=== PATIENT | male | born 1955 | race African-American/Black ===

== ENCOUNTER → 2017-12-01 16:41 | Outpatient (CLI) | payer OTHER, MEDICAID, SELFPAY ==
--- NOTE | 2017-12-01 16:45 | DI.MRI.S_ITS ---
PROCEDURE: MR LUMBAR SPINE WO CON INDICATIONS: LOW BACK PAIN TECHNIQUE: Noncontrast sagittal T1 spin echo and T2 fast echo, sagittal STIR, axial T1 and T2 fast spin echo through the lumbar spine. In cases with scoliosis, additional coronal T2 fast spin echo may be performed. COMPARISON: [facility], MR, L-SPINE WITHOUT CONTRAST, 12/29/2016, 17:04. FINDINGS: Image quality: Excellent. Alignment and Curvature: There is normal bony alignment. Bone Marrow: Marrow is of normal overall signal. No acute vertebral body compression fractures. Spinal Cord: Conus medullaris terminates at the T12/L1 level. Visualized cord demonstrates normal signal and size. Paraspinous Soft Tissues: No paravertebral masses. L1-L2: Mild disc desiccation. Broad-based disc bulge. No canal stenosis. No neural foraminal stenosis. These findings are unchanged when compared with the study dated 12/29/16. L2-L3: Mild disc desiccation and height loss. Broad-based disc bulge. Mild facet ligamentum flavum hypertrophy. No canal stenosis. No neural foraminal stenosis. These findings are unchanged. L3-L4: Mild disc desiccation and height loss. Broad-based disc bulge. Moderate facet ligamentum flavum hypertrophy. Mild canal stenosis. Mild epidural lipomatosis. Moderate bilateral neural foraminal stenosis. These findings are similar to the prior study. L4-L5: Mild disc desiccation and height loss. Broad-based disc bulge. Moderate facet and ligamentum flavum hypertrophy. Epidural and pneumatosis with moderate canal stenosis. Severe bilateral neural foraminal narrowing. These findings are unchanged. L5-S1: Mild disc desiccation and height loss. Broad-based disc bulge. Severe facet sclerosis. Epidural lipomatosis. Mild canal stenosis. Severe bilateral neural foraminal stenosis. These findings are unchanged. IMPRESSION: 1. Disc desiccation and height loss throughout the lumbar spine overall mild in degree. 2. Broad-based disc bulges, facet and ligamentum flavum hypertrophy, and epidural lipomatosis with resultant mild canal stenosis at L3-4 and L5-S1 and moderate canal stenosis at L4-5. These findings are similar in extent to the study dated 12/29/16. 3. Severe bilateral neuroforaminal stenosis at L4-5 and L5-S1, unchanged from the prior study. 4. The previously described annular fissure at L5-S1 is not definitely visualized on the current study. Dictated by: Jasmina Pantoja M.D. on 12/01/2017 at 16:35 Approved by: Jasmina Pantoja M.D. on 12/01/2017 at 16:41
== END ==
PROVIDERS: Family Provider Family Medicine; PCP Family Medicine; Visit Provider Physical Medicine & Rehabilitation Pain Medicine
DX: M54.5 Low back pain (principal); M48.061 Spinal stenosis, lumbar region without neurogenic claudication; M51.26 Other intervertebral disc displacement, lumbar region
CPT/HCPCS: 72148

== ENCOUNTER 2018-04-17 12:37 | Emergency (ER) | payer OTHER, MEDICAID, SELFPAY ==
[2018-04-17 12:41] VITALS: BP 151/91; PULSE 67; RESP 17; TEMP 36.8; O2SAT 98; BMI 35.5
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
[2018-04-17 13:06] LABS: Add Manual Diff / Slide Review NO; Basophils Percent Auto 0.6 % (0-2); Eosinophils Percent Auto 6.8 % (2-4); Hematocrit 37.1 % (41-53); Hemoglobin 12.8 g/dL (13.5-17.5); Lymphocytes Percent Auto 40.7 % (25-40); Mean Corpuscular HGB Conc 34.6 % (30-36); Mean Corpuscular Hemoglobin 30.5 PG (26-34); Mean Corpuscular Volume 88.2 fL (80-100); Monocytes Percent Auto 13.8 % (3-14); Neutrophils Absolute Auto 2400 /uL (3000-5900); Neutrophils Percent Auto 38.1 % (50-75); Platelet Count 157 X10^3/uL (150-400); Red Blood Cell Count 4.21 X10^6/uL (4.5-5.9); Red Cell Distribution Width 15.2 % (11.6-14.8); White Blood Cell Count 6.2 X10^3/uL (4.5-11.0)
[2018-04-17 13:14] LABS: Alanine Aminotransferase 23 IU/L (21-72); Albumin 4.2 g/dL (3.5-5.0); Albumin Globulin Ratio 1.3 (1.0-2.8); Alkaline Phosphatase 68 U/L (38-126); Aspartate Aminotransferase 34 IU/L (17-59); BUN Creatinine Ratio 21.3 (6-22); Bilirubin Total 0.6 mg/dL (0.2-1.3); Blood Urea Nitrogen 32 mg/dL (9-20); Calcium 8.4 mg/dL (8.4-10.2); Carbon Dioxide 26 mmol/L (22-32); Chloride 107 mmol/L (98-107); Creatine Kinase 999 U/L (55-170); Estimated Glomerular Filt Rate 47.3 mL/min (>60); Globulin 3.3 g/dL (1.7-4.1); Glucose 90 mg/dL (80-110); HEMOLYSIS < 15 (0-50); Potassium 5.3 mmol/L (3.4-5.1); Sodium 144 mmol/L (137-145); Total Protein 7.5 g/dL (6.3-8.2)
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
[2018-04-17 13:26] LABS: Troponin I < 0.012 ng/mL (0.01-0.034)
[2018-04-17 13:28] LABS: Lactate (Lactic Acid) 1.3 mmol/L (0.7-2.1)
[2018-04-17 13:29] LABS: CKMB % Relative Index 0.3 % (1.5-5.0); Creatine Kinase MB 3.22 ng/mL (<2.37)
[2018-04-17 13:32] LABS: Procalcitonin < 0.05 ng/mL (<0.5)
[2018-04-17 13:33] VITALS: BP 113/76; PULSE 60; RESP 17; O2SAT 98
[2018-04-17] MEDS: SODIUM CHLORIDE 0.9% 1,000 ML 1000 ML IV (13:33)
[2018-04-17 13:54] LABS: Influenza A and B by PCR Rapid Negative (Negative)
[2018-04-17 14:00] VITALS: BP 129/81; PULSE 65; RESP 20; O2SAT 96
[2018-04-17 14:32] VITALS: BP 133/76; PULSE 58; RESP 22; O2SAT 97
== END 2018-04-17 14:40 | disposition home or self-care (01) ==
PROVIDERS: Emergency Provider Nurse Practitioner Family; Family Provider Family Medicine; PCP Family Medicine
DX: J40 Bronchitis, not specified as acute or chronic (principal)
CPT/HCPCS: 36415; 36591; 71045; 80053; 82550; 82553; 83605; 84145; 84484; 85025; 87400; 93005; 96360; 96361; 99283; 99285

== ENCOUNTER 2018-10-25 01:11 | Emergency (ER) | payer OTHER, MEDICAID, SELFPAY ==
[2018-10-25 01:15] VITALS: BP 132/83; PULSE 88; RESP 20; TEMP 36.6; O2SAT 99; BMI 33.7
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
--- NOTE | 2018-10-25 01:20 | PC.NURSE ---
14 fr coude placed attached to a leg bag. Pt tolerated procedure well, stated that feels way better after urine started to flow in the tubing. Sample obtained for poc. Pt comfortable on stretcher now talkng to spouse on phone. Denies needs at this time.
[2018-10-25 01:37] LABS: Bacteria Urine None Seen; WBC Urine None Seen (0-5/HPF)
[2018-10-25 01:39] LABS: Culture Indicated Urine Cult Not Indicated; RBC Urine 10-30/HPF (0-5/HPF)
[2018-10-25 02:14] VITALS: BP 107/75; PULSE 70; RESP 99; O2SAT 99
== END 2018-10-25 02:17 | disposition home or self-care (01) ==
PROVIDERS: Emergency Provider Emergency Medicine; PCP Family Medicine
DX: R33.8 Other retention of urine (principal)
CPT/HCPCS: 81003; 81015; 99283

== ENCOUNTER 2018-11-04 19:26 | Emergency (ER) | payer OTHER, MEDICAID, SELFPAY ==
[2018-11-04 19:30] VITALS: BP 150/84; PULSE 90; RESP 22; TEMP 37.2; O2SAT 98; BMI 35.5
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
[2018-11-04 19:58] LABS: Add Manual Diff / Slide Review NO; Basophils Absolute Auto 100 /uL (0-100); Basophils Percent Auto 0.6 % (0-2); Eosinophils Absolute Auto 300 /uL (0-450); Eosinophils Percent Auto 2.6 % (2-4); Hematocrit 40.2 % (41-53); Hemoglobin 14.2 g/dL (13.5-17.5); Lymphocytes Absolute Auto 1500 /uL (1100-4500); Lymphocytes Percent Auto 11.4 % (25-40); Mean Corpuscular HGB Conc 35.2 % (30-36); Mean Corpuscular Volume 85.4 fL (80-100); Monocytes Absolute Auto 900 /uL (0-900); Monocytes Percent Auto 7.1 % (3-14); Neutrophils Absolute Auto 10200 /uL (1500-7000); Neutrophils Percent Auto 78.3 % (50-75); Platelet Count 227 X10^3/uL (150-400); Red Blood Cell Count 4.71 X10^6/uL (4.5-5.9); Red Cell Distribution Width 14.9 % (11.6-14.8)
[2018-11-04 20:05] LABS: Prothrombin Time 11.9 SECONDS (10.1-12.7)
[2018-11-04 20:08] LABS: PTT Partial Thromboplastin Tim 24 SECONDS (26.4-36.2)
[2018-11-04 20:11] LABS: Alanine Aminotransferase 11 IU/L (21-72); Albumin 4.7 g/dL (3.5-5.0); Albumin Globulin Ratio 1.2 (1.0-2.8); Alkaline Phosphatase 86 U/L (38-126); Aspartate Aminotransferase 28 IU/L (17-59); BUN Creatinine Ratio 18.4 (6-22); Bilirubin Total 0.8 mg/dL (0.2-1.3); Blood Urea Nitrogen 35 mg/dL (9-20); Calcium 9.2 mg/dL (8.4-10.2); Carbon Dioxide 20 mmol/L (22-32); Chloride 106 mmol/L (98-107); Creatine Kinase 296 U/L (55-170); Estimated Glomerular Filt Rate 35.9 mL/min (>60); Globulin 3.9 g/dL (1.7-4.1); Glucose 104 mg/dL (80-110); Lipase 74 U/L (23-300); Sodium 136 mmol/L (137-145); Total Protein 8.6 g/dL (6.3-8.2)
[2018-11-04 20:22] LABS: Troponin I < 0.012 ng/mL (0.01-0.034)
[2018-11-04 20:24] LABS: Potassium 6.7 mmol/L (3.4-5.1)
[2018-11-04 20:26] LABS: CKMB % Relative Index 0.6 % (1.5-5.0); Creatine Kinase MB 1.69 ng/mL (<2.37); HEMOLYSIS 23 (0-50)
[2018-11-04 20:31] VITALS: BP 133/71; PULSE 82; RESP 21; O2SAT 99
--- NOTE | 2018-11-04 20:32 | PC.NURSE ---
Received call from lab for potassium of 6.7, this RN reports sluggish draw, Dr Daily aware, repeat potassium lab test order obtained.
[2018-11-04] MEDS: HYDROCODONE/ACET 5/325 TABLET 1 TAB PO (20:45)
[2018-11-04 21:12] LABS: HEMOLYSIS < 15 (0-50)
[2018-11-04 21:16] LABS: Lactate (Lactic Acid) 0.7 mmol/L (0.7-2.1)
[2018-11-04 21:18] LABS: Bilirubin Urine UA NEGATIVE (NEGATIVE); Color Urine UA RED; Glucose Urine UA NEGATIVE (Negative); Ketones Urine UA NEGATIVE (NEGATIVE); Leukocyte Esterase Urine UA 3+ (NEGATIVE); Nitrite Urine UA POSITIVE (Negative); Occult Blood Urine UA 3+ (Negative); Protein Urine UA 1+ (Negative); Urobilinogen Urine UA 0.2 E.U./dL (0.2)
[2018-11-04 21:20] LABS: Potassium 7.2 mmol/L (3.4-5.1)
[2018-11-04 21:27] LABS: Appearance Urine UA TURBID
[2018-11-04 21:29] LABS: RBC Urine >100/HPF (0-5/HPF)
[2018-11-04 21:31] LABS: Bacteria Urine Many (>30); WBC Urine 30-100/HPF (0-5/HPF)
[2018-11-04 21:32] LABS: Culture Indicated Urine Specimen Cultured
[2018-11-04 21:35] VITALS: BP 126/71; PULSE 85; RESP 16; O2SAT 100
[2018-11-04 21:51] LABS: Procalcitonin 0.06 ng/mL (<0.5)
[2018-11-04] MEDS: MORPHINE 4 MG/ML INJ 6 MG IV (22:03)
[2018-11-04] MEDS: DEXTROSE 50 % IN WATER 25 GM/50 ML SYRINGE IV (22:09)
[2018-11-04] MEDS: INSULIN REGULAR 100 UNIT/ML 3 ML VIAL 10 UNIT IV (22:12)
[2018-11-04] MEDS: CEFTRIAXONE 1 GM/50 ML FROZ.PIGGY IV (22:27)
[2018-11-04] MEDS: ALBUTEROL 2.5 MG/3 ML NEB (ADULT) 5 MG INH (22:28)
[2018-11-04 22:37] VITALS: BP 122/73; PULSE 84; RESP 17; O2SAT 100
[2018-11-04] MEDS: SODIUM POLYSTYRENE SULFON/SORB 15 GM/60 ML CUP 30 GM PO (23:30)
[2018-11-04] MEDS: SODIUM CHLORIDE 0.9% 1,000 ML 125 ML IV (23:30)
[2018-11-05 00:10] VITALS: BP 134/75; PULSE 91; RESP 23; TEMP 37.3; O2SAT 97
[2018-11-05 00:43] VITALS: TEMP 39.2
[2018-11-05] MEDS: IBUPROFEN 400 MG TABLET PO (00:43)
--- NOTE | 2018-11-05 00:48 | PC.NURSE ---
Addendum entered by Anusha Conway R.N. 11/05/18 00:51: Bedside commode was also offered to pt d/t kayexalate administration. Pt denies any need or urge to use commode at this time. Original Note: Lambert changed from leg bag to dependent drainage bag. Irrigation performed, small amount of clots returned. Pt requested brief be placed on d/t some leaking around lambert. Securement of lambert ensured using securement device on leg. Pt was complaining of being cold, shivering noted, repeat temp revealed temp of 102.5. Verbal order for 400 mg ibuprofen received from Dr. Daily. Pt has been medicated. Will continue to monitor.
[2018-11-05 01:01] VITALS: BP 137/87; PULSE 97; RESP 22; O2SAT 99
== END 2018-11-05 01:22 | disposition short-term general hospital (02) ==
PROVIDERS: Emergency Provider Emergency Medicine; PCP Family Medicine
DX: E87.5 Hyperkalemia (principal); N17.9 Acute kidney failure, unspecified; N39.0 Urinary tract infection, site not specified; R07.89 Other chest pain; R06.02 Shortness of breath
CPT/HCPCS: 36415; 36591; 51700; 71045; 80053; 81001; 82550; 82553; 82962; 83605; 83690; 84132; 84145; 84484; 85025; 85610; 85730; 87040; 87077; 87086; 87186; 93005; 96361; 96365; 96375; 99285; J2270; J7613

== ENCOUNTER → 2018-11-14 10:58 | Outpatient (CLI) | payer OTHER, MEDICAID, SELFPAY ==
[2018-11-14 13:12] LABS: BUN Creatinine Ratio 19.2 (6-22); Blood Urea Nitrogen 23 mg/dL (9-20); Calcium 9.3 mg/dL (8.4-10.2); Carbon Dioxide 28 mmol/L (22-32); Chloride 101 mmol/L (98-107); Estimated Glomerular Filt Rate > 60.0 mL/min (>60); Glucose 106 mg/dL (80-110); HEMOLYSIS 18 (0-50); Potassium 5.2 mmol/L (3.4-5.1); Sodium 139 mmol/L (137-145)
== END ==
PROVIDERS: PCP Family Medicine; Visit Provider Family Medicine
DX: E87.5 Hyperkalemia (principal); N17.9 Acute kidney failure, unspecified
CPT/HCPCS: 36415; 80048

== ENCOUNTER → 2018-12-26 14:07 | Outpatient (CLI) | payer OTHER, MEDICAID, SELFPAY ==
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
== END ==
PROVIDERS: PCP Family Medicine; Visit Provider Physical Medicine & Rehabilitation
DX: M16.0 Bilateral primary osteoarthritis of hip (principal)
CPT/HCPCS: 73521

== ENCOUNTER → 2019-01-06 09:57 | Outpatient (CLI) | payer OTHER, MEDICAID, SELFPAY ==
--- NOTE | 2019-01-06 10:03 | DI.RAD.S_ITS ---
PROCEDURE: XR LUMBAR SPINE 2-3V INDICATIONS: lumbar spondylosis, history prostate cancer TECHNIQUE: 3 views of the lumbar spine were acquired. COMPARISON: [facility], ARABELLA, SPINE LUMB 2 OR 3VW, 10/05/2016, 16:04. [facility], ARABELLA, L-SPINE 4V PLUS BENDING, 12/22/2007, 10:26. FINDINGS: Bones: No fracture or focal osseous destruction. Multilevel degenerative endplate sclerosis and spurring. Diffuse facet arthropathy. Straightening of the normal lordotic curvature. Trace retrolisthesis of L3 on L4 as before. Mild L5-S1 disc space narrowing. Mild diffuse lower thoracic disc space narrowing. Mild levocurvature as before Soft tissues: Overlying bowel gas pattern is normal. No suspicious soft tissue calcifications. IMPRESSION: Mild L5-S1 lumbar spondylosis, no interval change since 10/05/16. Diffuse facet arthropathy Dictated by: Paul Guerrero M.D. on 01/06/2019 at 12:50 Approved by: Paul Guerrero M.D. on 01/06/2019 at 12:52
--- NOTE | 2019-01-06 10:03 | DI.RAD.S_ITS ---
PROCEDURE: XR KNEE LT 3V INDICATIONS: evaluate DJD TECHNIQUE: 3 views of the knee were acquired. COMPARISON: [facility], KNEE 1-2 VIEWS LEFT, 02/03/2008, 13:28. [facility], KNEE 1-2 VIEWS RIGHT, 02/03/2008, 13:28. FINDINGS: Bones: No fractures or dislocations. No suspicious bony lesions. Chondrocalcinosis projecting in the lateral compartment. Scattered degenerative subchondral sclerosis and spurring. Chronic osseous fusion of the proximal tibia and fibula. Mild narrowing of the medial joint space. Soft tissues: No joint effusion. No suspicious soft tissue calcifications. IMPRESSION: Left knee chondrocalcinosis. Mild degenerative joint disease, grossly unchanged since 02/03/08 Dictated by: Paul Guerrero M.D. on 01/06/2019 at 14:10 Approved by: Paul Guerrero M.D. on 01/06/2019 at 14:12
--- NOTE | 2019-01-06 10:03 | DI.RAD.S_ITS ---
PROCEDURE: XR KNEE RT 3V INDICATIONS: evaluate DJD TECHNIQUE: 3 views of the knee were acquired. COMPARISON: [facility], , KNEE 1-2 VIEWS RIGHT, 02/03/2008, 13:28. FINDINGS: Bones: No fractures or dislocations. No suspicious bony lesions. Scattered degenerative subchondral sclerosis and spurring. Moderate medial joint space narrowing, and moderate patellofemoral joint space narrowing Soft tissues: No joint effusion. No suspicious soft tissue calcifications. IMPRESSION: Moderate right knee joint degeneration, slightly progressed since 02/03/08 Dictated by: Paul Guerrero M.D. on 01/06/2019 at 12:52 Approved by: Paul Guerrero M.D. on 01/06/2019 at 12:54
== END ==
PROVIDERS: PCP Family Medicine; Visit Provider Family Medicine
DX: M17.0 Bilateral primary osteoarthritis of knee (principal); M47.27 Other spondylosis with radiculopathy, lumbosacral region; M11.262 Other chondrocalcinosis, left knee; Z85.46 Personal history of malignant neoplasm of prostate
CPT/HCPCS: 72100; 73562

== ENCOUNTER 2019-05-17 09:56 | Emergency (ER) | payer MEDICARE, MEDICAID, SELFPAY ==
[2019-05-17 10:10] VITALS: BP 140/90; PULSE 74; RESP 16; TEMP 36.6; O2SAT 98
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
[2019-05-17 10:52] LABS: Prothrombin Time 11.1 SECONDS (10.1-12.7)
[2019-05-17 10:53] LABS: Basophils Absolute Auto 100 /uL (0-100); Eosinophils Absolute Auto 600 /uL (0-450); Neutrophils Absolute Auto 3500 /uL (1500-7000)
[2019-05-17 10:55] LABS: PTT Partial Thromboplastin Tim 20 SECONDS (26.4-36.2)
[2019-05-17 10:58] LABS: Alanine Aminotransferase 19 IU/L (<50); Albumin 4.5 g/dL (3.5-5.0); Albumin Globulin Ratio 1.4 (1.0-2.8); Alkaline Phosphatase 70 U/L (38-126); Aspartate Aminotransferase 37 IU/L (17-59); BUN Creatinine Ratio 18.5 (6-22); Bilirubin Total 1.1 mg/dL (0.2-1.3); Blood Urea Nitrogen 24 mg/dL (9-20); Calcium 8.8 mg/dL (8.4-10.2); Carbon Dioxide 22 mmol/L (22-32); Chloride 107 mmol/L (98-107); Creatine Kinase 436 U/L (55-170); Estimated Glomerular Filt Rate 55.4 mL/min (>60); Globulin 3.3 g/dL (1.7-4.1); Glucose 126 mg/dL (80-110); Lipase 58 U/L (23-300); Potassium 4.6 mmol/L (3.4-5.1); Sodium 139 mmol/L (137-145); Total Protein 7.8 g/dL (6.3-8.2)
[2019-05-17 11:00] VITALS: BP 145/95; PULSE 64; RESP 19; O2SAT 100
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
[2019-05-17 11:01] LABS: Eosinophils Percent Auto 7.9 % (2-4); HEMOLYSIS 65 (0-50); Hemoglobin 13.8 g/dL (13.5-17.5); Lymphocytes Absolute Auto 3100 /uL (1100-4500); Lymphocytes Percent Auto 39.1 % (25-40); Mean Corpuscular HGB Conc 35.3 % (30-36); Mean Corpuscular Hemoglobin 30.6 PG (26-34); Mean Corpuscular Volume 86.7 fL (80-100); Monocytes Absolute Auto 600 /uL (0-900); Monocytes Percent Auto 7.7 % (3-14); Neutrophils Percent Auto 44.3 % (50-75); Red Cell Distribution Width 15.1 % (11.6-14.8); White Blood Cell Count 7.8 X10^3/uL (4.5-11.0)
[2019-05-17 11:03] LABS: Add Manual Diff / Slide Review SLIDE REVIEW
[2019-05-17 11:09] LABS: Troponin I < 0.012 ng/mL (0.01-0.034)
[2019-05-17 11:13] LABS: CKMB % Relative Index 0.6 % (1.5-5.0); Creatine Kinase MB 2.68 ng/mL (<2.37)
[2019-05-17 11:20] LABS: RBC Morphology Normal Morphology
[2019-05-17 11:21] LABS: Platelet Count 166 X10^3/uL (150-400)
[2019-05-17] MEDS: SODIUM CHLORIDE 0.9% 1,000 ML 1000 ML IV (11:25)
[2019-05-17 11:30] VITALS: BP 142/87; PULSE 62; RESP 15; O2SAT 100
[2019-05-17 12:00] VITALS: BP 130/90; PULSE 57; PULSE 62; RESP 12; RESP 13; O2SAT 100; O2SAT 99
[2019-05-17 12:29] LABS: Bacteria Urine None Seen; RBC Urine None Seen (0-5/HPF)
[2019-05-17 12:38] LABS: WBC Urine 0-1/HPF (0-5/HPF)
[2019-05-17 12:39] LABS: Amorphous Sediment Urine 1+; Culture Indicated Urine Cult Not Indicated; Mucus Urine 2+ (Negative); Squamous Epithelial Cell Urine 1-5 /HPF (0-5/HPF)
[2019-05-17 13:00] VITALS: BP 135/86; PULSE 60; RESP 16; O2SAT 98
[2019-05-17 14:17] VITALS: BP 161/88; PULSE 74; RESP 16; TEMP 36.9; O2SAT 99
== END 2019-05-17 14:19 | disposition left against medical advice (07) ==
PROVIDERS: Emergency Medicine; Emergency Provider Emergency Medicine; PCP Family Medicine
DX: R07.9 Chest pain, unspecified (principal); W85.XXXA Exposure to electric transmission lines, initial encounter; R79.89 Other specified abnormal findings of blood chemistry
CPT/HCPCS: 36415; 71045; 80053; 81003; 81015; 82550; 82553; 83690; 84484; 85025; 85610; 85730; 93005; 93010; 96360; 96361; 99283; 99285

== ENCOUNTER → 2019-07-19 14:51 | Outpatient (CLI) | payer MEDICARE, MEDICAID, SELFPAY ==
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
== END ==
PROVIDERS: PCP Family Medicine; Referring Provider Family Medicine; Visit Provider Family Medicine
DX: M25.551 Pain in right hip (principal); R10.2 Pelvic and perineal pain; M47.816 Spondylosis without myelopathy or radiculopathy, lumbar region; M43.16 Spondylolisthesis, lumbar region
CPT/HCPCS: 72100

== ENCOUNTER → 2019-10-12 13:33 | Outpatient (CLI) | payer MEDICARE, MEDICAID, SELFPAY ==
[2019-10-14 16:07] LABS: COVID19 Sendout Not Detected (Not Detected)
== END ==
PROVIDERS: PCP Family Medicine; Visit Provider Family Medicine
DX: R05 Cough (principal)
CPT/HCPCS: 87635

== ENCOUNTER 2021-01-10 14:01 | Emergency (ER) | payer MEDICARE, MEDICAID, SELFPAY ==
[2021-01-10 14:10] VITALS: BP 137/77; PULSE 70; RESP 14; TEMP 36.6; O2SAT 99; BMI 35.5
[2021-01-10 14:37] LABS: COVID19 -Nasal RAPID Negative (Negative)
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
== END 2021-01-10 15:17 | disposition home or self-care (01) ==
PROVIDERS: Emergency Provider Emergency Medicine; PCP Family Medicine
DX: R06.00 Dyspnea, unspecified (principal); Z20.822 Contact with and (suspected) exposure to COVID-19
CPT/HCPCS: 87635; 99281; 99282; C9803

== ENCOUNTER 2021-03-06 14:55 | Observation (INO) | payer MEDICARE, MEDICAID, SELFPAY ==
[2021-03-06] VITALS (13 sets, daily range): BP systolic 137–162; BP diastolic 79–97; PULSE 64–77; RESP 13–30; TEMP 36.4–37.3; O2SAT 96–100; BMI 35.5
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
[2021-03-06] MEDS: ASPIRIN 81 MG CHEW TAB 324 MG PO (15:52)
[2021-03-06 15:54] LABS: Add Manual Diff / Slide Review NO; Basophils Absolute Auto 0 /uL (0-100); Basophils Percent Auto 0.6 % (0-2); Eosinophils Absolute Auto 500 /uL (0-450); Eosinophils Percent Auto 9.2 % (2-4); Hematocrit 35.1 % (41-53); Hemoglobin 12.2 g/dL (13.5-17.5); Lymphocytes Absolute Auto 2000 /uL (1100-4500); Lymphocytes Percent Auto 33.6 % (25-40); Mean Corpuscular HGB Conc 34.6 % (30-36); Mean Corpuscular Hemoglobin 31.1 PG (26-34); Mean Corpuscular Volume 89.7 fL (80-100); Monocytes Absolute Auto 400 /uL (0-900); Monocytes Percent Auto 6.9 % (3-14); Neutrophils Absolute Auto 2900 /uL (1500-7000); Neutrophils Percent Auto 49.7 % (50-75); Platelet Count 181 X10^3/uL (150-400); Red Blood Cell Count 3.91 X10^6/uL (4.5-5.9); Red Cell Distribution Width 14.7 % (11.6-14.8); White Blood Cell Count 5.8 X10^3/uL (4.5-11.0)
[2021-03-06 16:11] LABS: Alanine Aminotransferase 69 IU/L (<50); Albumin 4.2 g/dL (3.5-5.0); Albumin Globulin Ratio 1.4 (1.0-2.8); Alkaline Phosphatase 114 U/L (38-126); Aspartate Aminotransferase 100 IU/L (17-59); BUN Creatinine Ratio 11.5 (6-22); Bilirubin Total 0.6 mg/dL (0.2-1.3); Blood Urea Nitrogen 13 mg/dL (9-20); Calcium 8.5 mg/dL (8.4-10.2); Carbon Dioxide 27 mmol/L (22-32); Chloride 106 mmol/L (98-107); Creatine Kinase 238 U/L (55-170); Estimated Glomerular Filt Rate > 60.0 mL/min (>60); Glucose 115 mg/dL (80-110); HEMOLYSIS < 15 (0-50); Lipase 36 U/L (23-300); Sodium 141 mmol/L (137-145); Total Protein 7.2 g/dL (6.3-8.2)
[2021-03-06 16:24] LABS: Troponin I 0.013 ng/mL (0.01-0.034)
[2021-03-06 16:26] LABS: CKMB % Relative Index 0.9 % (1.5-5.0); Creatine Kinase MB 2.04 ng/mL (<2.37)
[2021-03-06 16:53] LABS: COVID19 - ADMIT (NP swab/PCR) Negative (Negative)
[2021-03-06] MEDS: clonazePAM 0.5 MG TABLET 2 MG PO (20:58)
[2021-03-06] MEDS: GABAPENTIN 600 MG TABLET PO (20:58)
[2021-03-07] VITALS: BP 134/82; PULSE 58; RESP 18; TEMP 36.5; O2SAT 95; O2SAT 96
[2021-03-07 00:43] LABS: Troponin I 0.016 ng/mL (0.01-0.034)
[2021-03-07 03:12] VITALS: BP 121/76; PULSE 58; RESP 18; TEMP 37; O2SAT 95
[2021-03-07 08:14] VITALS: O2SAT 98
[2021-03-07 08:20] VITALS: BP 144/89; PULSE 61; RESP 16; TEMP 35.9; O2SAT 91
[2021-03-07 08:24] LABS: Troponin I 0.019 ng/mL (0.01-0.034)
--- NOTE | 2021-03-07 08:43 | CM.DANOTE ---
DCP: Case received, EMR reviewed and met with patient. Introduced self and role. Was able to obtain information regarding patient's baseline activity prior to hospitalization. DCP assessment completed with information currently available. Patient is a 65 year old male who admitted yesterday afternoon to the care of the hospitalist team. PCP: Dr. Canada. Payer: confirmed: [facility] MCR/Medicaid. Patient came to the hospital via private vehicle secondary to having some chest discomfort. He had been working in the yard, according to notes, when he started having some chest discomfort. He was advised by his primary care provider to come to the ER. He will be having a stress test today. Patient has history of HTN, Hep C, as well as schizoaffective disorder. Met with patient in his room. He is alert and oriented, sitting up in bed having breakfast. Confirmed that hs resides in [place] with his significant other, Rosana Marlow. He is independent at his baseline, he works out with weights at home. P: DCP to continue to follow for any needs. Patient should be able to go home when he is medically cleared. Sylvia Choudhary RN/[employer] Discharge Planning/Care Management CM Discharge Assessment Start: 03/07/21 08:42 Freq: Status: Active Protocol: Document 03/07/21 08:42 (Rec: 03/07/21 08:43 [id number]) Discharge Planning Assessment Assigned Cell[employer]er Sylvia Choudhary RN/[employer] Advance Directives? No History Provided By Patient,Medical Record Prior Living Arrangements Apartment/Condo Household Members significant other,friend(s) Type of transporation used prior to Drives own vehicle admit Independent with ADL's Yes Is patient alert and oriented? Yes Caregiver for Another No Barriers to Discharge No Discharge Plan Home Transportation Arrangement Significant other Referrals Initiated None needed Whiteboard Updated in Patient Room with Yes name and ext. # of Cellophaner Review Status In Process Next Review Type Continued Stay Review
[2021-03-07] MEDS: ASPIRIN EC 81 MG TABLET PO (09:10)
[2021-03-07] MEDS: TAMSULOSIN 0.4 MG CAPSULE PO (09:10)
[2021-03-07] MEDS: allopurinoL 100 MG TABLET PO (09:10)
[2021-03-07] MEDS: GABAPENTIN 600 MG TABLET PO ×2 (09:10→14:49)
[2021-03-07] MEDS: AMLODIPINE 5 MG TABLET 10 MG PO (09:10)
--- NOTE | 2021-03-07 10:35 | PC.NURSE ---
Patient denies pain, or chest discomfort. He ate breakfast and is now NPO for his treadmill stress test. at bedside, patient refused his cymbalta. Resting comfortably.
[2021-03-07 11:40] VITALS: BP 136/79; PULSE 57; RESP 16; TEMP 35.9; O2SAT 97
--- NOTE | 2021-03-07 12:51 | DI.NM.S_ITS ---
DATE OF SERVICE: 03/07/2021 PROCEDURE PERFORMED: Exercise treadmill stress test without imaging. ORDERING PROVIDER: Dr. Delmer Roa. INDICATIONS: The patient is a 65-year-old male on chronic opiates with schizoaffective disorder who was admitted with left-sided chest discomfort. CARDIAC STRESS: The patient was able to exercise for only 1 minute, 32 seconds on a standard John protocol, suggesting markedly reduced exercise capacity with an XIN of +70%, achieving only 4.6 METs. He stopped because of dyspnea but had no chest discomfort. He had an accelerated heart rate response to exercise with a resting heart rate of 82 BPM, increasing to a maximum of 147 BPM (95% of his predicted maximum). He had a normal blood pressure response. His resting ECG shows some nonspecific ST and T-wave abnormalities with T-wave flattening. With stress, there are no obvious significant ST-segment shifts, although considerable motion artifact limits the interpretation. He had occasional PACs and PVCs, and salvos of nonsustained VT in recovery up to 3 to 8 beats with a polymorphic appearance, but he remained asymptomatic. IMPRESSION: 1. Nondiagnostic exercise treadmill study for ischemia because of limited duration and nonspecific ST-segment abnormalities. 2. Markedly reduced exercise capacity with an accelerated heart rate response and complex ventricular ectopy in recovery with salvos of nonsustained VT of 3 to 8 beats. 3. If there is a significant concern for underlying ischemic heart disease, consider a pharmacologic nuclear myocardial perfusion study for further assessment for possible ischemia
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
[2021-03-07] MEDS: ENOXAPARIN 40 MG/0.4 ML SYRINGE SUBCUT (14:48)
--- NOTE | 2021-03-07 18:37 | DI.NM.S_ITS ---
DATE OF SERVICE: 03/07/2021 PROCEDURE PERFORMED: Exercise treadmill stress test without imaging. ORDERING PROVIDER: Dr. Delmer Roa. INDICATIONS: The patient is a 65-year-old male on chronic opiates with schizoaffective disorder who was admitted with left-sided chest discomfort. CARDIAC STRESS: The patient was able to exercise for only 1 minute, 32 seconds on a standard John protocol, suggesting markedly reduced exercise capacity with an XIN of +70%, achieving only 4.6 METs. He stopped because of dyspnea but had no chest discomfort. He had an accelerated heart rate response to exercise with a resting heart rate of 82 BPM, increasing to a maximum of 147 BPM (95% of his predicted maximum). He had a normal blood pressure response. His resting ECG shows some nonspecific ST and T-wave abnormalities with T-wave flattening. With stress, there are no obvious significant ST-segment shifts, although considerable motion artifact limits the interpretation. He had occasional PACs and PVCs, and salvos of nonsustained VT in recovery up to 3 to 8 beats with a polymorphic appearance, but he remained asymptomatic. IMPRESSION: 1. Nondiagnostic exercise treadmill study for ischemia because of limited duration and nonspecific ST-segment abnormalities. 2. Markedly reduced exercise capacity with an accelerated heart rate response and complex ventricular ectopy in recovery with salvos of nonsustained VT of 3 to 8 beats. 3. If there is a significant concern for underlying ischemic heart disease, consider a pharmacologic nuclear myocardial perfusion study for further assessment for possible ischemia. RalfDelmer - ROZINA/ochoa/shirlene doc#: [id number]/job#: [id number] dd: 03/07/2021 16:50:00 dt: 03/07/2021 18:09:00 DICTATING MD/COPIES TO: Prem Fletcher MD; Delmer Roa MD COPIES MNE: ALEXANDER;
== END 2021-03-07 16:06 | disposition home or self-care (01) ==
LOC: ED 15:07 → AC 17:44
PROVIDERS: Admitting Provider Internal Medicine; Emergency Provider Emergency Medicine; PCP Family Medicine; Referring Provider Emergency Medicine; Visit Provider Family Medicine
DX: R07.9 Chest pain, unspecified (principal); Z20.822 Contact with and (suspected) exposure to COVID-19; I10 Essential (primary) hypertension; E78.5 Hyperlipidemia, unspecified; F25.9 Schizoaffective disorder, unspecified; G89.29 Other chronic pain; F11.20 Opioid dependence, uncomplicated; M10.9 Gout, unspecified; N40.0 Benign prostatic hyperplasia without lower urinary tract symptoms
CPT/HCPCS: 36415; 71045; 80053; 82550; 82553; 83690; 84484; 85025; 87635; 93005; 93017; 94760; 96372; 99234; 99284; C9803; G0378; J1650

== ENCOUNTER → 2021-03-18 08:16 | Outpatient (CLI) | payer MEDICARE, MEDICAID, SELFPAY ==
[2021-03-06 18:40] VITALS: BMI 35.5
[2021-03-19 09:13] LABS: COVID19 -Nasal RAPID Negative (Negative)
--- NOTE | 2021-03-19 19:43 | DI.NM.S_ITS ---
DATE OF SERVICE: 03/18/2021 PROCEDURE PERFORMED: Pharmacological perfusion study. INDICATIONS: Chest pain with underlying hypertension. RADIOPHARMACEUTICAL: 27.0 millicurie technetium-99m Myoview IV was injected at stress and 25.6 millicurie technetium-99m Myoview IV was injected at rest. CARDIAC STRESS: The patient underwent IV Lexiscan perfusion study under the supervision of an attending staff. The patient received IV Lexiscan as per protocol. The patient remained hemodynamically stable. Baseline rhythm was sinus with poor R-wave progression. During stress, there were no convincing ischemic changes. No significant arrhythmias seen. The patient has baseline resting chest pressure, which got slightly worse during Lexiscan and returned back to the baseline in recovery. RAW DATA: The patient's weight is 311 pounds. There is increased subdiaphragmatic activity. Gated study resting LV ejection fraction 64 percent and stress LV ejection fraction 67 percent. No obvious wall motion abnormalities. Resting end-diastolic volume 158 mL. TID ratio 1.32. However, this is a pharmacological perfusion study. Lung/heart ratio 0.43, which is within normal limits. MYOCARDIAL PERFUSION SCAN: Stress supine, resting supine and stress prone images were compared to each other. Stress supine and resting supine images reveal small size, mildly decreased perfusion of inferior wall, which got completely resolved during stress prone images, suggestive of diaphragmatic tissue attenuation artifact. CONCLUSION: This is a normal myocardial perfusion study with evidence of diaphragmatic tissue attenuation artifact, which got resolved during stress prone images. Preserved left ventricular function. Overall, this is a low-risk myocardial perfusion scan. Delmer Arambula - Brayan/shirlene doc#: [id number]/job#: [id number] dd: 03/19/2021 17:08:00 dt: 03/19/2021 19:00:00 DICTATING MD/COPIES TO: Saran Fierro MD COPIES MNE: YIN;
== END ==
PROVIDERS: PCP Family Medicine; Referring Provider Family Medicine; Visit Provider Family Medicine
DX: R07.9 Chest pain, unspecified (principal); I10 Essential (primary) hypertension; Z20.822 Contact with and (suspected) exposure to COVID-19
CPT/HCPCS: 78452; 87635; 93017; A9502; J2785

== ENCOUNTER → 2021-05-14 13:08 | Outpatient (CLI) | payer MEDICARE, MEDICAID, SELFPAY ==
[2021-03-06 18:40] VITALS: BMI 35.5
--- NOTE | 2021-05-14 13:10 | DI.MG.S_ITS ---
MALE BILATERAL DIGITAL DIAGNOSTIC MAMMOGRAM 3D/2D: 05/14/2021 CLINICAL: Baseline exam. Left breast pain. No prior exams were available for comparison. There is a benign area of fibroglandular tissue in the left breast central to the nipple in the retroareolar region. This correlates as palpated and to area of tenderness. No other significant masses, calcifications, or other findings are seen in either breast. IMPRESSION: BENIGN There is no mammographic evidence of malignancy. Left sided gynecomastia is present. Correlate with any endocrine abnormalities or contributing medications. This exam was interpreted at Station ID: [id number]. NOTE: For mammograms, a report in lay terms will be sent to the patient. Approximately 15% of breast malignancies will not be visualized mammographically. In the management of a palpable breast mass, a negative mammogram must not discourage biopsy of a clinically suspicious lesion. Electronically Signed By: Angelo Bhat M.D. jr/:05/14/2021 14:48:05 letter sent: Normal Exam ACR BI-RADS Category 2: Benign Finding(s) 3342F
== END ==
PROVIDERS: PCP Family Medicine; Referring Provider Family Medicine; Visit Provider Family Medicine
DX: N62 Hypertrophy of breast (principal); N64.4 Mastodynia
CPT/HCPCS: 77066; G0279

== ENCOUNTER → 2021-05-29 07:53 | Outpatient (CLI) | payer MEDICARE, MEDICAID, SELFPAY ==
[2021-03-06 18:40] VITALS: BMI 35.5
[2021-05-29 08:28] LABS: COVID19 -Nasal RAPID Negative (Negative)
== END ==
PROVIDERS: PCP Family Medicine; Referring Provider Physician Assistant; Visit Provider Physician Assistant
DX: Z20.822 Contact with and (suspected) exposure to COVID-19 (principal)
CPT/HCPCS: 87635

== ENCOUNTER 2021-11-01 17:52 | Emergency (ER) | payer MEDICARE, MEDICAID, SELFPAY ==
[2021-03-06 18:40] VITALS: BMI 35.5
[2021-11-01 18:01] VITALS: BP 175/98; PULSE 75; RESP 16; TEMP 36.7; O2SAT 98; BMI 37.3
[2021-11-01 18:20] VITALS: PULSE 65; O2SAT 97
--- NOTE | 2021-11-01 18:26 | DI.RAD.S_ITS ---
PROCEDURE: XR KNEE LT 3V INDICATIONS: pain and swelling TECHNIQUE: 3 views of the knee were acquired. COMPARISON: [facility], CR, XR KNEE STANDING BILATERAL, 03/23/2018, 12:58. [facility], CR, KNEE 1-2 VIEWS LEFT, 02/03/2008, 13:28. [facility], CR, XR KNEE LT 3V, 01/06/2019, 10:04. FINDINGS: Bones: No fractures or dislocations. No suspicious bony lesions. There is moderate medial femorotibial joint space narrowing seen, with associated remodeling changes including subchondral sclerosis and osteophyte formation along the jointline. On the sunrise view, there is moderate patellofemoral joint space narrowing seen. Osteophyte formation can be seen along the margins of the patella. Soft tissues: There is a bkko-qm-vgpmjqyf joint effusion. Calcification can be seen along the joint line, which is attributed to meniscal calcification. IMPRESSION: Iwmw-ck-havreouk left knee joint effusion. Degenerative changes are seen, which are worst involving the medial femorotibial compartment. If it would be helpful for clinical management decision making, please consider a dedicated, scheduled knee MRI for further evaluation (assuming that there is no contraindication). Dictated by: Kumar Hooker M.D. on 11/01/2021 at 17:57 Approved by: Kumar Hooker M.D. on 11/01/2021 at 17:58
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
[2021-11-01 18:30] VITALS: PULSE 60; O2SAT 97
[2021-11-01 19:00] VITALS: PULSE 60; O2SAT 98
[2021-11-01 19:30] VITALS: PULSE 59; O2SAT 98
[2021-11-01] MEDS: HYDROMORPHONE 1 MG INJ IM (19:39)
== END 2021-11-01 19:58 | disposition home or self-care (01) ==
PROVIDERS: Emergency Provider Emergency Medicine; PCP Family Medicine
DX: M25.562 Pain in left knee (principal); M17.12 Unilateral primary osteoarthritis, left knee
CPT/HCPCS: 73562; 96372; 99283; J1170

== ENCOUNTER → 2022-01-14 12:32 | Outpatient (CLI) | payer MEDICARE, MEDICAID, SELFPAY ==
[2021-03-06 18:40] VITALS: BMI 35.5
[2022-01-14 13:52] LABS: Erythrocyte Sedimentation Rate 13 MM/HR (0-15)
[2022-01-14 15:17] LABS: C-Reactive Protein Quant 1.4 mg/dL (<1.0)
== END ==
PROVIDERS: PCP Family Medicine; Referring Provider Family Medicine; Visit Provider Family Medicine
DX: M10.9 Gout, unspecified (principal); M16.12 Unilateral primary osteoarthritis, left hip; M16.9 Osteoarthritis of hip, unspecified; M17.10 Unilateral primary osteoarthritis, unspecified knee; S31.139A Puncture wound of abdominal wall without foreign body, unspecified quadrant without penetration into peritoneal cavity, initial encounter; W34.00XA Accidental discharge from unspecified firearms or gun, initial encounter
CPT/HCPCS: 36415; 84550; 85651; 86140

== ENCOUNTER → 2022-05-07 08:48 | Outpatient (CLI) | payer MEDICARE, MEDICAID, SELFPAY ==
[2021-03-06 18:40] VITALS: BMI 35.5
[2022-05-07 09:34] LABS: Influenza A - CEPHEID Flu A NEGATIVE (NEGATIVE); Influenza B - CEPHEID Flu B NEGATIVE (NEGATIVE); Respiratory Syncytial Virus Negative (Negative)
[2022-05-07 09:46] LABS: COVID-19 CEPHEID 4-PLEX PCR POSITIVE (Negative)
== END ==
PROVIDERS: PCP Family Medicine; Visit Provider Registered Nurse
DX: R05.9 Cough, unspecified (principal); J02.9 Acute pharyngitis, unspecified
CPT/HCPCS: 0241U; 87070

== ENCOUNTER 2022-05-19 07:27 | Emergency (ER) | payer MEDICARE, MEDICAID, SELFPAY ==
[2021-03-06 18:40] VITALS: BMI 35.5
[2022-05-19] VITALS (7 sets, daily range): BP systolic 143–176; BP diastolic 80–103; PULSE 63–69; RESP 18–20; TEMP 36.1–36.8; O2SAT 56–100
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
[2022-05-19 10:27] LABS: Influenza A - CEPHEID Flu A NEGATIVE (NEGATIVE); Influenza B - CEPHEID Flu B NEGATIVE (NEGATIVE); Respiratory Syncytial Virus Negative (Negative)
[2022-05-19 10:29] LABS: COVID-19 CEPHEID 4-PLEX PCR POSITIVE (Negative)
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
[2022-05-19 13:36] LABS: D Dimer 746 ng/ml (<500)
[2022-05-19 13:37] LABS: Creatine Kinase 340 U/L (55-170)
[2022-05-19 13:50] LABS: NT-proBNP (BNP-Adult 18+) 325 pg/mL (<125); Troponin I 0.015 ng/mL (0.01-0.034)
[2022-05-19 13:53] LABS: CKMB % Relative Index 0.6 % (1.5-5.0); Creatine Kinase MB 2.05 ng/mL (<2.37)
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
[2022-05-19] MEDS: ALBUTEROL 2.5 MG/3 ML NEB (ADULT) INH (14:24)
[2022-05-19] MEDS: GUAIFENESIN/DM 200/20 MG/10 ML UDC 5 ML PO (14:27)
[2022-05-19 14:59] LABS: Add Manual Diff / Slide Review NO; Basophils Absolute Auto 0 /uL (0-100); Basophils Percent Auto 0.5 % (0-2); Eosinophils Absolute Auto 200 /uL (0-450); Hematocrit 38.5 % (41-53); Lymphocytes Absolute Auto 2500 /uL (1100-4500); Lymphocytes Percent Auto 41.3 % (25-40); Mean Corpuscular HGB Conc 33.9 % (30-36); Mean Corpuscular Hemoglobin 30.2 PG (26-34); Mean Corpuscular Volume 89.1 fL (80-100); Monocytes Absolute Auto 600 /uL (0-900); Monocytes Percent Auto 10.4 % (3-14); Neutrophils Absolute Auto 2700 /uL (1500-7000); Neutrophils Percent Auto 43.8 % (50-75); Platelet Count 239 X10^3/uL (150-400); Red Blood Cell Count 4.32 X10^6/uL (4.5-5.9); Red Cell Distribution Width 14.8 % (11.6-14.8); White Blood Cell Count 6.1 X10^3/uL (4.5-11.0)
[2022-05-19 15:31] LABS: Alanine Aminotransferase 34 IU/L (<50); Albumin Globulin Ratio 1.2 (1.0-2.8); Alkaline Phosphatase 81 U/L (38-126); Aspartate Aminotransferase 42 IU/L (17-59); BUN Creatinine Ratio 20.2 (6-22); Bilirubin Total 0.9 mg/dL (0.2-1.3); Blood Urea Nitrogen 18 mg/dL (9-20); Calcium 8.4 mg/dL (8.4-10.2); Carbon Dioxide 28 mmol/L (22-32); Chloride 102 mmol/L (98-107); Estimated Glomerular Filt Rate > 60 mL/min (>60); Globulin 3.3 g/dL (1.7-4.1); Glucose 98 mg/dL (80-110); HEMOLYSIS < 15 (0-50); Potassium 4.4 mmol/L (3.4-5.1); Sodium 140 mmol/L (137-145); Total Protein 7.3 g/dL (6.3-8.2)
== END 2022-05-19 18:09 | disposition home or self-care (01) ==
PROVIDERS: Emergency Medicine; Emergency Provider Student in an Organized Health Care Education/Training Program; PCP Family Medicine
DX: U07.1 COVID-19 (principal)
CPT/HCPCS: 0241U; 71046; 71275; 80053; 82550; 82553; 83880; 84484; 85025; 85379; 93005; 93010; 94640; 99284; J7613; Q9967

== ENCOUNTER 2022-12-23 16:53 | Emergency (ER) | payer MEDICARE, MEDICAID, SELFPAY ==
[2021-03-06 18:40] VITALS: BMI 35.5
[2022-12-23] VITALS (13 sets, daily range): BP systolic 119–138; BP diastolic 61–70; PULSE 69–81; RESP 12–26; TEMP 36.2–36.6; O2SAT 95–99; BMI 36.7
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
[2022-12-23 17:37] LABS: Add Manual Diff / Slide Review NO; Basophils Absolute Auto 0 /uL (0-100); Basophils Percent Auto 0.6 % (0-2); Eosinophils Absolute Auto 500 /uL (0-450); Eosinophils Percent Auto 6.5 % (2-4); Hematocrit 37.5 % (41-53); Hemoglobin 12.9 g/dL (13.5-17.5); INR 1.1 (0.9-1.3); Lymphocytes Absolute Auto 2900 /uL (1100-4500); Lymphocytes Percent Auto 36.1 % (25-40); Mean Corpuscular HGB Conc 34.3 % (30-36); Mean Corpuscular Hemoglobin 30.4 PG (26-34); Mean Corpuscular Volume 88.5 fL (80-100); Monocytes Absolute Auto 700 /uL (0-900); Monocytes Percent Auto 8.9 % (3-14); Neutrophils Absolute Auto 3900 /uL (1500-7000); Neutrophils Percent Auto 47.9 % (50-75); Platelet Count 223 X10^3/uL (150-400); Prothrombin Time 13.1 SECONDS (10.1-12.7); Red Blood Cell Count 4.24 X10^6/uL (4.5-5.9); Red Cell Distribution Width 14.9 % (11.6-14.8); White Blood Cell Count 8.1 X10^3/uL (4.5-11.0)
[2022-12-23 17:41] LABS: Lactate (Lactic Acid) 1.5 mmol/L (0.7-2.1)
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
[2022-12-23 18:29] LABS: Adenovirus Not Detected (Not Detect)
[2022-12-23 18:30] LABS: B. parapertussis Not Detected (Not Detecte); Bordetella pertussis Not Detected (Not Detecte); Chlamydophila pneumoniae Not Detected (Not Detect); Coronavirus 229E Not Detected (Not Detect); Coronavirus HKU1 Not Detected (Not Detect); Coronavirus NL 63 Not Detected (Not Detect); Coronavirus OC43 Not Detected (Not Detect); Human Metapneumovirus Not Detected (Not Detect); Human Rhinovirus/Enterovirus Not Detected (Not Detect); Influenza A Not Detected (Not Detect); Influenza B Not Detected (Not Detect); Mycoplasma pneumoniae Not Detected (Not Detect); Parainfluenza Virus 1 Not Detected (Not Detect); Parainfluenza Virus 2 Not Detected (Not Detect); Parainfluenza Virus 3 Not Detected (Not Detect); Parainfluenza Virus 4 Not Detected (Not Detect); Respiratory Syncytial Virus Not Detected (Not Detect); SARS- CoV-2 Not Detected (Not Detecte)
[2022-12-23 18:41] LABS: Alanine Aminotransferase 19 IU/L (<50); Albumin Globulin Ratio 1.2 (1.0-2.8); Alkaline Phosphatase 92 U/L (38-126); Aspartate Aminotransferase 26 IU/L (17-59); BUN Creatinine Ratio 14.7 (6-22); Bilirubin Total 0.5 mg/dL (0.2-1.3); Blood Urea Nitrogen 22 mg/dL (9-20); Calcium 8.1 mg/dL (8.4-10.2); Carbon Dioxide 22 mmol/L (22-32); Chloride 106 mmol/L (98-107); Estimated Glomerular Filt Rate 50 mL/min (>60); Globulin 3.4 g/dL (1.7-4.1); Glucose 130 mg/dL (80-110); HEMOLYSIS < 15 (0-50); Potassium 4.1 mmol/L (3.4-5.1); Sodium 137 mmol/L (137-145); Total Protein 7.4 g/dL (6.3-8.2)
[2022-12-23 18:52] LABS: NT-proBNP (BNP-Adult 18+) 24 pg/mL (<125); Troponin I < 0.012 ng/mL (0.01-0.034)
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
[2022-12-23] MEDS: AZITHROMYCIN 250 MG TABLET 500 MG PO (19:50)
== END 2022-12-23 20:00 | disposition home or self-care (01) ==
PROVIDERS: Emergency Medicine; Emergency Provider Emergency Medicine; PCP Family Medicine
DX: J18.9 Pneumonia, unspecified organism (principal); Z20.822 Contact with and (suspected) exposure to COVID-19
CPT/HCPCS: 36415; 71045; 80053; 81003; 83605; 83880; 84484; 85025; 85610; 87633; 93005; 99284

== ENCOUNTER → 2023-01-18 16:06 | Outpatient (CLI) | payer MEDICARE, MEDICAID, SELFPAY ==
[2021-03-06 18:40] VITALS: BMI 35.5
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
--- NOTE | 2023-01-18 16:10 | DI.RAD.S_ITS ---
PROCEDURE: XR HIP W PEL IF DONE ARLETH MIN 4V INDICATIONS: BILATERAL HIP PAIN TECHNIQUE: AP pelvis with lateral view(s) of the left and right hip(s). COMPARISON: [facility], CR, XR HIP W PEL IF DONE BILAT 2V, 12/26/2018, 14:25. CT, CT KUB, 10/25/2018, 16:52. FINDINGS: Bones: No fractures or dislocations. Pelvic ring appears intact. No suspicious bony lesions. Mild to moderate axial hip joint space narrowing with periarticular osteophyte formation. Osseous prominence along the femoral head/neck junction bilaterally. Degenerative disc and facet disease involves the inferior lumbar spine. Soft tissues: The visualized bowel gas pattern is normal. No suspicious soft tissue calcifications. IMPRESSION: 1. Mphe-qv-uvtnmhnm symmetric hip joint degeneration. 2. Osseous prominence along the head/neck junction bilaterally which can be associated with CAM type acetabular impingement in the appropriate clinical setting. If indicated, MRI could be performed for further assessment. Dictated by: Joey Lunsford [facility] Interpreted: Daphne Keller MD on 01/18/2023 at 21:03 Transcribed by: WILMER on 01/18/2023 at 21:04 Approved by: Daphne Keller M.D. on 01/18/2023 at 22:05
== END ==
PROVIDERS: PCP Family Medicine; Referring Provider Physical Medicine & Rehabilitation; Visit Provider Physical Medicine & Rehabilitation
DX: M47.26 Other spondylosis with radiculopathy, lumbar region (principal); M47.27 Other spondylosis with radiculopathy, lumbosacral region; M16.0 Bilateral primary osteoarthritis of hip; M17.0 Bilateral primary osteoarthritis of knee; M25.551 Pain in right hip; M25.552 Pain in left hip; M54.9 Dorsalgia, unspecified; F11.90 Opioid use, unspecified, uncomplicated; S31.139S Puncture wound of abdominal wall without foreign body, unspecified quadrant without penetration into peritoneal cavity, sequela
CPT/HCPCS: 20611; 72110; 73522; 99214; J0702

== ENCOUNTER 2023-03-08 10:44 | Emergency (ER) | payer OTHER, MEDICARE, SELFPAY ==
[2021-03-06 18:40] VITALS: BMI 35.5
[2023-03-08 11:01] VITALS: BP 157/77; PULSE 61; RESP 18; TEMP 37; O2SAT 98
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
[2023-03-08 12:41] VITALS: BP 143/80; PULSE 60; RESP 14; O2SAT 100
== END 2023-03-08 12:42 | disposition home or self-care (01) ==
PROVIDERS: Emergency Provider Emergency Medicine; PCP Family Medicine
DX: S06.0X0A Concussion without loss of consciousness, initial encounter (principal); V89.2XXA Person injured in unspecified motor-vehicle accident, traffic, initial encounter
CPT/HCPCS: 70450; 99283; 99284

== ENCOUNTER → 2024-05-26 08:59 | Outpatient (CLI) | payer MEDICARE, MEDICAID, SELFPAY ==
[2021-03-06 18:40] VITALS: BMI 35.5
--- NOTE | 2024-05-26 09:01 | DI.RAD.S_ITS ---
PROCEDURE: XR KNEE LT 3V INDICATIONS: pain TECHNIQUE: 3 views of the knee were acquired. COMPARISON: [facility], CR, XR KNEE LT 3V, 11/01/2021, 18:18. [facility], CR, XR KNEE RT 3V, 01/06/2019, 10:04. FINDINGS: Bones: No fractures or dislocations. No suspicious bony lesions. Asymmetric moderately severe medial compartment joint space narrowing consistent with underlying degenerative osteoarthritis. Soft tissues: No joint effusion. No suspicious soft tissue calcifications beyond mild lateral meniscal chondrocalcinosis. IMPRESSION: No trauma found, no effusion present. Asymmetric prominent medial compartment knee joint osteoarthritic change. Mild lateral compartment chondrocalcinosis. Dictated by: Kelvin Pringle M.D. on 05/26/2024 at 13:46 Approved by: Kelvin Pringle M.D. on 05/26/2024 at 13:48
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
--- NOTE | 2024-05-26 09:01 | DI.RAD.S_ITS ---
PROCEDURE: XR HIP W PEL IF DONE ARLETH MIN 4V INDICATIONS: pain TECHNIQUE: AP pelvis with lateral view(s) of the bilateral hip(s), four views total. COMPARISON: [facility], CR, XR HIP W PEL IF DONE ARLETH 3TO4V, 01/18/2023, 16:18. [facility], CR, XR HIP W PEL IF DONE BILAT 2V, 12/26/2018, 14:25. FINDINGS: Bones: No fractures or dislocations. [id number] stable bilaterally symmetric hip joint osteoarthritis. Pelvic ring appears intact. No suspicious bony lesions. Soft tissues: The visualized bowel gas pattern is normal. No suspicious soft tissue calcifications. IMPRESSION: No acute bony abnormality. No trauma found. [id number] symmetric bilateral previously present hip joint osteoarthritis. Dictated by: Kelvin Pringle M.D. on 05/26/2024 at 13:48 Approved by: Kelvin Pringle M.D. on 05/26/2024 at 13:49
--- NOTE | 2024-05-26 09:01 | DI.RAD.S_ITS ---
PROCEDURE: XR KNEE RT 3V INDICATIONS: pain TECHNIQUE: 3 views of the knee were acquired. COMPARISON: [facility], CR, XR KNEE LT 3V, 11/01/2021, 18:18. [facility], CR, XR KNEE RT 3V, 01/06/2019, 10:04. FINDINGS: Bones: No fractures or dislocations. No suspicious bony lesions. Asymmetric moderately severe right medial compartment knee joint osteoarthritic joint space narrowing, and moderate medial and lateral facet patellofemoral joint osteoarthritis. Soft tissues: No joint effusion. No suspicious soft tissue calcifications. IMPRESSION: Moderate to moderately severe knee joint osteoarthritis predominantly involving the medial compartment and the patellofemoral joint. No effusion associated. This has moderately worsened from comparison study 11/01/21. Dictated by: Kelvin Pringle M.D. on 05/26/2024 at 13:49 Approved by: Kelvin Pringle M.D. on 05/26/2024 at 13:51
== END ==
PROVIDERS: PCP Family Medicine; Referring Provider Family Medicine; Visit Provider Family Medicine
DX: M11.262 Other chondrocalcinosis, left knee (principal); M17.11 Unilateral primary osteoarthritis, right knee; M16.0 Bilateral primary osteoarthritis of hip; R05.9 Cough, unspecified; R06.02 Shortness of breath; R52 Pain, unspecified
CPT/HCPCS: 71046; 73522; 73562

== ENCOUNTER 2024-05-26 10:01 | Emergency (ER) | payer MEDICARE, MEDICAID, SELFPAY ==
[2021-03-06 18:40] VITALS: BMI 35.5
[2024-05-26 10:20] VITALS: BP 140/79; PULSE 66; RESP 15; TEMP 37.1; O2SAT 96; BMI 37.5
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
[2024-05-26 11:18] LABS: Influenza A - CEPHEID Flu A NEGATIVE (NEGATIVE); Influenza B - CEPHEID Flu B NEGATIVE (NEGATIVE); Respiratory Syncytial Virus Negative (Negative)
[2024-05-26 11:20] LABS: COVID-19 CEPHEID 4-PLEX PCR Negative (Negative)
[2024-05-26 13:00] VITALS: BP 139/74; PULSE 61; RESP 18; TEMP 37.1; O2SAT 97
[2024-05-26] MEDS: BENZONATATE 100 MG CAPSULE PO (13:21)
[2024-05-26] MEDS: predniSONE 20 MG TABLET 40 MG PO (13:21)
[2024-05-26] MEDS: DOXYCYCLINE HYCLATE 100 MG TABLET PO (13:21)
[2024-05-26 14:25] VITALS: BP 131/65; PULSE 63; RESP 18; TEMP 36.9
== END 2024-05-26 14:25 | disposition home or self-care (01) ==
PROVIDERS: Emergency Medicine; Emergency Provider Physician Assistant; PCP Family Medicine
DX: J06.9 Acute upper respiratory infection, unspecified (principal); M15.9 Polyosteoarthritis, unspecified; F17.200 Nicotine dependence, unspecified, uncomplicated; Z79.891 Long term (current) use of opiate analgesic
CPT/HCPCS: 0241U; 71046; 73522; 73562; 99283; 99284

== ENCOUNTER 2024-06-02 10:37 | Emergency (ER) | payer MEDICARE, SELFPAY ==
[2021-03-06 18:40] VITALS: BMI 35.5
[2024-06-02 10:44] VITALS: BP 152/89; PULSE 74; RESP 16; TEMP 36.6; O2SAT 96; BMI 35.5
--- NOTE | 2024-06-02 10:49 | EKG_ITS ---
[facility] [address] [address] Test Date: 2024-06-02 Pat Name: Delmer Arambula Department: [facility] Room: Gender: Male Research Statistician: SASHA : 1955 Requested By: Order Number: [id number] Reading MD: Alfred Andrews Measurements Intervals [place] Rate: 67 P: 68 LA: 142 QRS: 44 QRSD: 86 T: -10 QT: 406 QTc: 429 Interpretive Statements Normal sinus rhythm Electronically Signed On 06-08-2024 9:03:43 PST by Alfred Andrews
--- NOTE | 2024-06-02 10:49 | DI.RAD.S_ITS ---
PROCEDURE: XR CHEST 1V INDICATIONS: Shortness of breath TECHNIQUE: One view of the chest was acquired. COMPARISON: [facility], , CHEST 1 VIEW, 02/22/2017, 17:25. [facility], CR, XR CHEST 2V, 05/26/2024, 9:08. [facility], CR, XR CHEST 1V, 12/23/2022, 17:10. [facility], CR, XR CHEST 2V, 05/19/2022, 7:54. [facility], CR, XR CHEST 1V, 03/06/2021, 15:29. FINDINGS: Surgical changes and devices: Median sternotomy wires. Chronic fracture of the 2nd superior-most sternotomy wire. Multiple round metallic densities overlying the chest. Lungs and pleura: Lungs are clear. No pleural effusions or pneumothorax. Mediastinum: Mediastinal contours appear normal. Heart size is normal. Bones and chest wall: No suspicious bony lesions. Overlying soft tissues appear unremarkable. IMPRESSION: No acute cardiothoracic process. Dictated by: Marlon Priest M.D. on 06/02/2024 at 11:50 Approved by: Marlon Priest M.D. on 06/02/2024 at 11:52
[2024-06-02 11:31] LABS: Add Manual Diff / Slide Review NO; Basophils Absolute Auto 0 /uL (0-100); Basophils Percent Auto 0.5 % (0-2); Eosinophils Absolute Auto 400 /uL (0-450); Eosinophils Percent Auto 4.6 % (2-4); Hemoglobin 12.5 g/dL (13.5-17.5); Lymphocytes Absolute Auto 3600 /uL (1100-4500); Lymphocytes Percent Auto 43.6 % (25-40); Mean Corpuscular HGB Conc 33.7 % (30-36); Mean Corpuscular Hemoglobin 29.2 PG (26-34); Mean Corpuscular Volume 86.5 fL (80-100); Monocytes Absolute Auto 600 /uL (0-900); Monocytes Percent Auto 7.1 % (3-14); Neutrophils Absolute Auto 3600 /uL (1500-7000); Neutrophils Percent Auto 44.2 % (50-75); Platelet Count 212 X10^3/uL (150-400); Red Blood Cell Count 4.28 X10^6/uL (4.5-5.9); Red Cell Distribution Width 15.5 % (11.6-14.8); White Blood Cell Count 8.2 X10^3/uL (4.5-11.0)
[2024-06-02 11:39] LABS: INR 1.1 (0.9-1.3); Prothrombin Time 12.3 SECONDS (9.4-12.5)
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
[2024-06-02 11:45] LABS: Alanine Aminotransferase 21 IU/L (<50); Albumin 4.1 g/dL (3.5-5.0); Albumin Globulin Ratio 1.4 (1.0-2.8); Alkaline Phosphatase 77 U/L (38-126); Aspartate Aminotransferase 31 IU/L (17-59); BUN Creatinine Ratio 18.7 (6-22); Bilirubin Total 0.7 mg/dL (0.2-1.3); Blood Urea Nitrogen 20 mg/dL (9-20); Calcium 8.6 mg/dL (8.4-10.2); Carbon Dioxide 24 mmol/L (22-32); Chloride 107 mmol/L (98-107); Estimated Glomerular Filt Rate > 60 mL/min (>60); Glucose 111 mg/dL (80-110); HEMOLYSIS < 15 (0-50); Potassium 3.7 mmol/L (3.4-5.1); Sodium 138 mmol/L (137-145); Total Protein 7.1 g/dL (6.3-8.2)
[2024-06-02 11:56] LABS: NT-proBNP (BNP-Adult 18+) 101 pg/mL (<125); Troponin I 0.013 ng/mL (0.01-0.034)
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
[2024-06-02 12:43] LABS: Adenovirus Not Detected (Not Detect); B. parapertussis Not Detected (Not Detecte); Bordetella pertussis Not Detected (Not Detect); Chlamydophila pneumoniae Not Detected (Not Detect); Coronavirus 229E Not Detected (Not Detect); Coronavirus HKU1 Not Detected (Not Detect); Coronavirus NL 63 Not Detected (Not Detect); Coronavirus OC43 Not Detected (Not Detect); Human Metapneumovirus Detected (Not Detect); Human Rhinovirus/Enterovirus Not Detected (Not Detect); Influenza A Not Detected (Not Detect); Influenza B Not Detected (Not Detect); Mycoplasma pneumoniae Not Detected (Not Detect); Parainfluenza Virus 1 Not Detected (Not Detect); Parainfluenza Virus 2 Not Detected (Not Detect); Parainfluenza Virus 3 Not Detected (Not Detect); Parainfluenza Virus 4 Not Detected (Not Detect); Respiratory Syncytial Virus Not Detected (Not Detect); SARS- CoV-2 Not Detected (Not Detecte)
[2024-06-02] MEDS: SODIUM CHLORIDE 0.9% (RT/INH) 3 ML NEB INH (13:32)
[2024-06-02 13:33] VITALS: PULSE 71; RESP 20; O2SAT 100
[2024-06-02 14:05] LABS: Troponin I 0.012 ng/mL (0.01-0.034)
[2024-06-02 14:53] VITALS: BP 144/79; PULSE 66; RESP 14; O2SAT 100
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
== END 2024-06-02 15:27 | disposition home or self-care (01) ==
PROVIDERS: Emergency Medicine; Emergency Provider Physician Assistant; PCP Family Medicine
DX: J18.9 Pneumonia, unspecified organism (principal); J12.3 Human metapneumovirus pneumonia; Z72.0 Tobacco use
CPT/HCPCS: 71045; 71275; 80053; 83605; 83880; 84484; 85025; 85610; 87633; 93005; 94640; 99283; 99284; Q9967

== ENCOUNTER → 2024-11-21 11:30 | Outpatient (CLI) | payer MEDICARE, MEDICAID, SELFPAY ==
[2021-03-06 18:40] VITALS: BMI 35.5
[2024-11-21 13:23] LABS: Hemoglobin A1C% w Est Avg Glu 5.7 % (4.0-6.0)
[2024-11-21 13:24] LABS: Add Manual Diff / Slide Review NO; Basophils Absolute Auto 0 /uL (0-100); Basophils Percent Auto 0.4 % (0-2); Eosinophils Absolute Auto 400 /uL (0-450); Eosinophils Percent Auto 5.8 % (2-4); Hematocrit 38.8 % (41-53); Hemoglobin 13.1 g/dL (13.5-17.5); Lymphocytes Absolute Auto 2500 /uL (1100-4500); Lymphocytes Percent Auto 40.4 % (25-40); Mean Corpuscular HGB Conc 33.8 % (30-36); Mean Corpuscular Hemoglobin 29.5 PG (26-34); Mean Corpuscular Volume 87.4 fL (80-100); Monocytes Absolute Auto 500 /uL (0-900); Monocytes Percent Auto 7.3 % (3-14); Neutrophils Absolute Auto 2900 /uL (1500-7000); Neutrophils Percent Auto 46.1 % (50-75); Platelet Count 187 X10^3/uL (150-400); Red Blood Cell Count 4.44 X10^6/uL (4.5-5.9); Red Cell Distribution Width 15.1 % (11.6-14.8); White Blood Cell Count 6.2 X10^3/uL (4.5-11.0)
[2024-11-21 13:44] LABS: Alanine Aminotransferase 16 IU/L (<50); Albumin 4.5 g/dL (3.5-5.0); Albumin Globulin Ratio 1.4 (1.0-2.8); Alkaline Phosphatase 69 U/L (38-126); Aspartate Aminotransferase 31 IU/L (17-59); BUN Creatinine Ratio 20.4 (6-22); Blood Urea Nitrogen 22 mg/dL (9-20); Calcium 8.7 mg/dL (8.4-10.2); Carbon Dioxide 26 mmol/L (22-32); Chloride 101 mmol/L (98-107); Cholesterol 132 mg/dL (140-199); Estimated Glomerular Filt Rate > 60 mL/min (>60); Globulin 3.3 g/dL (1.7-4.1); Glucose 112 mg/dL (70-99); HDL Cholesterol 39 mg/dL (40-60); LDL Cholesterol Calculated 68 mg/dL (<100); Potassium 4.7 mmol/L (3.4-5.1); Sodium 137 mmol/L (137-145); Total Protein 7.8 g/dL (6.3-8.2); Triglycerides 123 mg/dL (35-150)
[2024-11-21 13:55] LABS: HEMOLYSIS 73 (0-50)
[2024-11-21 14:41] LABS: Creatinine Urine Random 35.43 mg/dL
== END ==
PROVIDERS: PCP Family Medicine; Referring Provider Family Medicine; Visit Provider Family Medicine
DX: D64.9 Anemia, unspecified (principal); I10 Essential (primary) hypertension; E66.9 Obesity, unspecified
CPT/HCPCS: 36415; 80053; 80061; 82043; 82570; 83036; 85025

== ENCOUNTER 2025-02-21 13:13 | Emergency (ER) | payer MEDICARE, MEDICAID, SELFPAY ==
[2021-03-06 18:40] VITALS: BMI 35.5
[2025-02-21] VITALS (12 sets, daily range): BP systolic 131–165; BP diastolic 76–87; PULSE 56–70; RESP 22; TEMP 37.5; O2SAT 96–100; BMI 35.5
[2025-02-21] MEDS: ACETAMINOPHEN 325 MG TABLET 975 MG PO (13:24)
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
[2025-02-21 15:18] LABS: Add Manual Diff / Slide Review NO; Hematocrit 35.1 % (41-53); Hemoglobin 12.1 g/dL (13.5-17.5); Lymphocytes Absolute Auto 1100 /uL (1100-4500); Mean Corpuscular HGB Conc 34.5 % (30-36); Mean Corpuscular Hemoglobin 29.4 PG (26-34); Mean Corpuscular Volume 85.1 fL (80-100); Platelet Count 140 X10^3/uL (150-400)
[2025-02-21 15:30] LABS: Alanine Aminotransferase 19 IU/L (<50); Albumin 4.0 g/dL (3.5-5.0); Albumin Globulin Ratio 1.3 (1.0-2.8); Alkaline Phosphatase 81 U/L (38-126); Blood Urea Nitrogen 16 mg/dL (9-20); Calcium 8.2 mg/dL (8.4-10.2); Carbon Dioxide 28 mmol/L (22-32); Chloride 102 mmol/L (98-107); Estimated Glomerular Filt Rate > 60 mL/min (>60); Globulin 3.1 g/dL (1.7-4.1); Glucose 100 mg/dL (70-99); HEMOLYSIS < 15 (0-50); Potassium 4.4 mmol/L (3.4-5.1); Sodium 138 mmol/L (137-145); Total Protein 7.1 g/dL (6.3-8.2)
[2025-02-21 15:31] LABS: Lactate (Lactic Acid) 1.4 mmol/L (0.7-2.1)
[2025-02-21 15:42] LABS: Troponin I < 0.012 ng/mL (0.01-0.034)
== END 2025-02-21 17:45 | disposition home or self-care (01) ==
PROVIDERS: Emergency Provider Emergency Medicine; PCP Family Medicine
DX: U07.1 COVID-19 (principal)
CPT/HCPCS: 71045; 80053; 83605; 84484; 85025; 99283; 99284